=== PATIENT | male | born 1985 | race Caucasian/White ===

== ENCOUNTER 2018-09-18 09:42 | Inpatient (IN) ==
[2018-09-18] MEDS ORDERED: FAMOTIDINE 20MG/5ML IV PUSH IV STA (10:11)
[2018-09-18] MEDS ORDERED: PROCHLORPERAZINE 2 ML IV ONE (10:11)
[2018-09-18] MEDS ORDERED: SODIUM CHLORIDE 0.9% 1000ML 1,000 ML IV SCH (10:15)
--- NOTE | 2018-09-18 10:33 | XRay Report ---
XR chest 1V portable HISTORY: 32 years-old Male Chest Pain acute atypical chest pain COMPARISON: None available TECHNIQUE: Portable AP view of the chest FINDINGS: Cardiomediastinal and hilar silhouettes are within normal limits. No pneumothorax, pleural effusion, focal airspace consolidation or overt pulmonary edema. The bones of the chest appear grossly intact. IMPRESSION: No acute process. The above report was generated using voice recognition software. It may contain grammatical, syntax o r spelling errors. Electronically signed by: Dell Grant M.D. 09/18/2018 10:31 AM
[2018-09-18 10:54] LABS: Basophils # (auto) 0.01 K/uL (0-0.2); Basophils % (auto) 0.1 %; Eosinophils # (auto) 0.01 K/uL (0-0.5); Eosinophils % (auto) 0.1 %; Hematocrit (blood only) 25.2 % (42-52); Hemoglobin 8.5 g/dL (14.0-18.0); Immature Granulocytes # (auto) 0.02 K/uL (0.00-0.02); Immature Granulocytes % (auto) 0.2 %; Lymphocytes # (auto) 1.54 K/uL (1.2-3.4); Lymphocytes % (auto) 15.5 %; Mean Corpuscular Hgb Conc 33.7 g/dL (32-36); Mean Corpuscular Volume 91.3 fL (80-100); Mean Platelet Volume 9.8 fL (7.4-10.4); Monocytes # (auto) 0.72 K/uL (0.11-0.59); Monocytes % (auto) 7.2 %; Neutrophils # (auto) 7.64 K/uL (1.4-6.5); Neutrophils % (auto) 76.9 %; Platelet Count 331 K/uL (130-400); Prothrombin Time 10.5 Seconds (9.0-12.0); RDW Coefficient of Variation 13.6 % (11.5-14.5); RDW Standard Deviation 44.6 fL (36.4-46.3); Red Blood Count 2.76 M/uL (4.7-6.1); White Blood Count 9.94 K/uL (4.8-10.8)
[2018-09-18 11:04] LABS: Alanine Aminotransferase 18 U/L (12-78); Albumin Level 3.1 gm/dl (3.4-5.0); Aspartate Aminotransferase 9 U/L (15-37); BUN Creatinine Ratio 35.4 (10-20); Bilirubin Direct 0.1 mg/dl (0-0.2); Blood Urea Nitrogen 30 mg/dl (7-18); Carbon Dioxide 26 mmol/L (21-32); Chloride 110 mmol/L (98-107); Creatinine Clr Calc Pharmacy 134.1 ml/min; Est GFR (African American) 134.6; Est GFR (Non-African American) 116.1; Glucose 95 mg/dl (70-99); Magnesium 1.7 mg/dl (1.8-2.4); Potassium 3.9 mmol/L (3.5-5.1); Sodium 143 mmol/L (136-145)
[2018-09-18 11:07] LABS: Albumin Globulin Ratio 1.1 (0.9-2); Alkaline Phosphatase 58 U/L (45-117); Bilirubin,Total 0.6 mg/dl (0.2-1); Globulin 2.8 gm/dl (2.5-4.0); Phosphorus 3.1 mg/dl (2.5-4.9); Total Protein 5.9 gm/dl (6.4-8.2); Troponin I < 0.015 ng/ml (0-0.045)
[2018-09-18] MEDS ORDERED: IOVERSOL 100ml IV PRN (11:28)
[2018-09-18] MEDS ORDERED: MAGNESIUM SULFATE / D5W 1 GM/100 ML BAG IV STA (11:35)
[2018-09-18] MEDS ORDERED: PANTOprazole 40 MG in SYRINGE 0 ML IV ONE (11:45)
--- NOTE | 2018-09-18 11:53 | CT Scan Report ---
CT abd pelvis IV con only CLINICAL HISTORY: 32 years-old Male presenting with abd pain, hemoptysis/melena, coffee-ground emesis , coughing up blood for 3 weeks. TECHNIQUE: Multidetector CT of the abdomen and pelvis was performed after the administration of intra venous contrast. IV contrast: 93 mL of Optiray 320. One or more dose lowering techniques were used co nsistent with the principles of ALARA (as low as reasonably achievable), including automatic exposure control, mA or kV adjustment to individual patient size, and/or use of iterative reconstruction. COMPARISON: None. CT DOSE (mGy.cm): The estimated cumulative dose is 430.26 mGycm. FINDINGS: [employer] topogram: Unremarkable. Lung bases: Normal heart size. No pericardial or pleural effusion. No focal infiltrate or nodule at t he lung bases. Liver: Normal morphology. Hypodense lesion at the inferior right hepatic lobe with peripheral discont inuous nodular enhancement suggestive of a benign hemangioma.. Patent hepatic vasculature. Biliary: No intrahepatic or extrahepatic biliary ductal dilatation. Normal gallbladder. Pancreas: Fluid noted adjacent to the pancreatic head, which does not seem to emanate from the pancre as itself. Normal pancreatic parenchyma. Spleen: Normal. Adrenal glands: Normal. Kidneys and ureters: Normal. No hydronephrosis. Bladder: Normal. Pelvic organs: Prostate and seminal vesicles normal. Bowel: Normal appendix. No bowel obstruction. There is mild wall thickening of the pylorus and duoden al bulb with periduodenal fluid tracking along the duodenal bulb and descending portion of the duoden um. No extraluminal gas. Peritoneal cavity: No free fluid or intraperitoneal gas. Lymph nodes: Few prominent lymph nodes in the mesentery in the peripyloric region. Vasculature: Aorta and IVC patent and normal in caliber. Abdominal wall: Normal. Musculoskeletal: Normal. IMPRESSION: 1. Inflammatory change and surrounding fluid in the region of the gastric pylorus and duodenal bulb. This is concerning for either duodenitis or gastric/duodenal ulcer. Gastroenterology consultation re commended. Electronically signed by: Jony Figueroa M.D. 09/18/2018 11:52 AM
--- NOTE | 2018-09-18 12:20 | History & Physical Report ---
Date of Service September 18, 2018 Assessment & Plan (1) Upper gastrointestinal bleed: CTAP noted for possible ulcer, no free air Heme + in the ED Hx of similar without hx of transfusion or scopes Hb 8.5, will repeat later today I personally consented pt in the ED in case of need for transfusion Protonix BID push, d/w pharmacy given back order NPO with sips, IVF GI c/s pending (2) Hypomagnesemia: Replaced in the ED, monitor (3) Tobacco use disorder: Quit x3 weeks Declines need for nicotine patch (4) DVT prophylaxis: Avoid given above History of Present Illness Primary Care Provider: CARMENZA Otero 32 y/o M c/o coffee ground emesis. Pt states he has been throwing up blood on and off for the last 3 weeks. He has been able to eat at times, but other times unable. He has epigastric abd pain as well. He has been nauseated. No bright red blood in stools. No black stools. Pt states that he had something similar happen about 2 years ago, prior to being incarcerated. He was seen in the ED and dx with an ulcer. He was advised about diet changes, which he did, and his sx resolved. He did not f/u with anyone for this issue and was not scoped for this. Pt states he feels a bit better, but is still nauseated and with more mild pain. Per ED physician, pt was noted to be heme +. Pt denies fever, SOB, chest pain, c/d, LE pain or swelling. Allergies Allergy/AdvReac Type Severity Reaction Status Date / Time No Known Allergies Allergy Unverified 09/18/18 10:25 Home Medications Home Medications Medication Instructions Recorded Confirmed Type diclofenac sodium 75 mg PO BIDM 09/18/18 09/18/18 History Past Med/Surg History Medical History Ulcer No pertinent family history Surgical History No pertinent past surgical history Family History Grandfather Myocardial infarction Mother Myocardial infarction Other No pertinent family history Social History Preferred Language: German Communication Ability: Effective Visual Impairment: No Limitations Hearing Ability: Normal Current Living Situation: Other Current Living Situation Comment: CARMENZA Morales current occupational status: other current occupation: incarcerated Feels Safe at Home: Yes Smoking Status: Former smoker Tobacco Type: cigarettes Smoking End Date: 3 weeks Hx Alcohol Use: No Hx Substance Use: No Review of Systems Review of Systems: Pertinent positives and negatives reviewed in HPI--all ot hers negative Physical Exam Constitutional: WD/WN, vitals as above Eyes: normal visual pal by confrontation and + anicteric sclerae Neck: normal visual inspection and trachea midline Respiratory: normal respiratory effort, lungs clear to auscultation Cardiovascular: Rate/Rhythm: regular rate and regular rhythm Gastrointestinal (Abdomen): Inspection/Auscultation: abdomen not distended Percussion/Palpation: + abdomen tender (epigastric) and abdomen soft Musculoskeletal: Head/Neck/Chest: normocephalic and head atraumatic negative for edema, peripheral pulses intact Skin: no rashes, warm and dry Neurologic: awake; not confused Speech / Cognition: normal speech Psychiatric: A+Ox3, euthymic affect Results & Data Vital Signs (Past 12 Hours) Vital Signs Temp Pulse Pulse Resp BP BP Pulse Ox 09/18/18 11:34 94 H 16 104/71 99 09/18/18 09:53 37.2 C 105 H 15 112/76 100 Diagnostic Findings CXR: neg for acute CTAP: duodenitis vs gastric/duodenal ulcer, neg for free air ECG Indication: tachycardia PG Care Time/CCT Total # of Minutes Spent Total Time Spent with Patient: Total time spent is greater than 50% in coordination of care (as documented) at patient's floor/unit and/or counseling patient:
--- NOTE | 2018-09-18 13:07 | Emergency Department Note ---
Entered by Ariana Argueta acting as a scribe for History of Present Illness General Chief complaint: GI Bleed Stated complaint: gi bleed / sci darwin Time Seen by Provider: 09/18/18 09:42 Source: patient Mode of arrival: other Limitations: no limitations History of Present Illness Onset (ago): week(s) 3 Location: abdomen (GI bleed) Pain Consistency: + other (worsening) Maximum Pain Intensity: 7 Quality: + other (coffee gound emesis) Associated symptoms: + fever/chills (The patient complains of chills. The patien t denies fevers. ), + nausea/vomiting, + syncope and + other (The patient complains of dizziness. The patient denies melena, hematochezia, and congestion); no cough The patient is a 32 year old male with a history of an ulcer who presents to the ED via EMS with complaints of a worsening GI bleed that onset 3 weeks ago. The patient presents from [facility]. He states that his symptoms are similar to a past episode of an ulcer. He notes that his vomiting started as light-colored vomit that progressed into coffee ground emesis. The patient complains of chills, nausea, and dizziness. He states that he lost consciousness after an episode of vomiting last night. The patient denies melena, hematochezia, fever, cough, and congestion. He states that his last bowel movement was last night and was normal. He notes that he takes antacids regularly. The patient denies alcohol use or liver problems caused by alcohol use. Home Medications Home Medications Medication Instructions Recorded Confirmed Type diclofenac sodium 75 mg PO BIDM 09/18/18 09/18/18 History Allergies Allergy/AdvReac Type Severity Reaction Status Date / Time No Known Allergies Allergy Unverified 09/18/18 10:25 Past Med/Surg History Medical History Ulcer No pertinent family history Surgical History No pertinent past surgical history Family History Grandfather Myocardial infarction Mother Myocardial infarction Other No pertinent family history Social History Preferred Language: Serbian Communication Ability: Effective Visual Impairment: No Limitations Hearing Ability: Normal Beliefs That Will Affect Care: None Current Living Situation: Other Current Living Situation Comment: CARMENZA Morales current occupational status: other current occupation: incarcerated Other Information That Helps Us Care for You: No Feels Safe at Home: Yes Safety Concerns: Feels Safe At This Time Smoking Status: Former smoker Tobacco Type: cigarettes Smoking End Date: 3 weeks Hx Alcohol Use: No Hx Substance Use: No Review of Systems See HPI for pertinent positives & negatives. and A total of 10 systems reviewed and were otherwise negative Physical Exam Vital Signs Vital Signs - 24 hr 09/18/18 09:53 09/18/18 11:34 Temperature 37.2 C Temperature Source Oral Sepsis Recent Fever Within 48 Hours No Sepsis New/Unexplained Change in Mental Status No Sepsis Action Taken by Nursing No Action Required Pulse Rate 105 H Pulse Rate [Left] 94 H Respiratory Rate 15 16 Respiratory Effort / Characteristics Non-Labored Spontaneous Blood Pressure 112/76 Blood Pressure [Right Arm] 104/71 Blood Pressure Mean 88 Blood Pressure Mean [Right Arm] 82 Blood Pressure Position Lying Blood Pressure Position [Right Arm] Lying Pulse Oximetry 100 99 Oxygen Delivery Method Room Air Room Air GENERAL: Awake, alert, fatigued-appearing, in no distress HENT: Normocephalic, atraumatic. Oropharynx with dry mucous membranes and otherwise unremarkable. EYES: Normal conjunctiva. Sclera non-icteric. NECK: Supple. No nuchal rigidity. FROM. No JVD. RESPIRATORY: Clear to auscultation bilaterally. CARDIAC: Regular rate, normal rhythm. Extremities warm and well perfused. Pulses equal. ABDOMEN: Soft, non-distended. Mild epigastric discomfort without discreet tenderness. No rebound or guarding. No masses. RECTAL: Black stool/melena. No gross blood. Guaiac positive. MUSCULOSKELETAL: Chest examination reveals no tenderness. The back is symmetrical on inspection without obvious abnormality. There is no CVA tenderness to palpation. No joint edema. LOWER EXTREMITIES: Calves are equal size bilaterally and non-tender. No edema. No discoloration. NEURO: Normal sensorium. No sensory or motor deficits noted. SKIN: No rash or jaundice noted. Course 1006: Past medical records reviewed. The patient was evaluated in room C04. A complete history and physical examination was performed. 1134: [facility]. She will evaluate the patient for further management. Consultations Consultation #1: [id number]: I reviewed the patient's [facility]. She will evaluate the patient for further management. Time: 11:34 Administered Medications Potassium Chloride/Dextrose/Sod Cl (D5nss + 20meq Kcl) 20 meq in 1,000 mls @ 100 mls/hr IV .Q10H THOM Stop: 10/18/18 13:59 Last Admin: 09/18/18 14:29 Dose: 100 mls/hr Documented by: [id number] Ioversol (Optiray 320 100ml) 93 ml IV ONCE PRN PRN Reason: Interaction Checking Stop: 09/22/18 11:27 Last Admin: 09/18/18 11:29 Dose: 93 ml Documented by: [id number] Discontinued Medications Famotidine (Pepcid 20mg Iv Push) 20 mg IV ONE STA Stop: 09/18/18 10:12 Last Admin: 09/18/18 10:25 Dose: 20 mg Documented by: [id number] Prochlorperazine (Compazine) 2 mls @ 1 mls/min IV ONE ONE Stop: 09/18/18 10:12 Last Admin: 09/18/18 10:25 Dose: 1 mls/min Documented by: [id number] Sodium Chloride (Nss 1000ml) 1,000 mls @ 999 mls/hr IV .Q1H1M THOM Stop: 09/18/18 11:15 Last Infusion: 09/18/18 11:34 Dose: 0 mls/hr Documented by: [id number] Admin: 09/18/18 10:25 Dose: 999 mls/hr Documented by: [id number] Pantoprazole Sodium 40 mg/ (Syringe) 10 mls @ 5 mls/min IV ONE ONE Stop: 09/18/18 11:46 Last Admin: 09/18/18 12:06 Dose: 5 mls/min Documented by: [id number] Magnesium Sulfate/Dextrose (Magnesium Sulfate / D5w) 1 gm in 100 mls @ 100 mls/hr IV Q1H STA Stop: 09/18/18 12:34 Last Infusion: 09/18/18 13:03 Dose: 0 mls/hr Documented by: [id number] Infusion: 09/18/18 13:01 Dose: 100 mls/hr Documented by: [id number] Admin: 09/18/18 12:07 Dose: 100 mls/hr Documented by: [id number] Medical Decision Making Differential Diagnosis Differential diagnoses: Diverticulosis, AVM, coagulopathy, colitis, inflammatory bowel disease, malignancy, Radha-Chamberlain tear, esophagitis, peptic ulcer disease, variceal bleed, gastritis, epistaxis, fissure, hemorrhoids, as well as others were entertained. Medical Records Attestation: I reviewed the patient's medical records. Home Medications Current Medication List: was personally reviewed by me Laboratory Data Attestation: I reviewed the patient's lab results. Result diagrams: 09/18/18 10:26 09/18/18 10:26 Lab Results 09/18/18 09/18/18 09/18/18 Range/Units 10:26 10:26 10:26 WBC 9.94 (4.8-10.8) K/uL RBC 2.76 L (4.7-6.1) M/uL Hgb 8.5 L (14.0-18.0) g/dL Hct 25.2 L (42-52) % MCV 91.3 (80-100) fL MCH 30.8 (25-34) pg MCHC 33.7 (32-36) g/dL RDW Std Deviation 44.6 (36.4-46.3) fL RDW Coeff of Sabas 13.6 (11.5-14.5) % Plt Count 331 (130-400) K/uL MPV 9.8 (7.4-10.4) fL Immature Gran % (Auto) 0.2 % Neut % (Auto) 76.9 % Lymph % (Auto) 15.5 % [place] % (Auto) 7.2 % Eos % (Auto) 0.1 % Baso % (Auto) 0.1 % Immature Gran # (Auto) 0.02 (0.00-0.02) K/uL Neut # (Auto) 7.64 H (1.4-6.5) K/uL Lymph # (Auto) 1.54 (1.2-3.4) K/uL [place] # (Auto) 0.72 H (0.11-0.59) K/uL Eos # (Auto) 0.01 (0-0.5) K/uL Baso # (Auto) 0.01 (0-0.2) K/uL PT 10.5 (9.0-12.0) Seconds INR 1.0 (0.9-1.1) Sodium 143 (136-145) mmol/L Potassium 3.9 (3.5-5.1) mmol/L Chloride 110 H (98-107) mmol/L Carbon Dioxide 26 (21-32) mmol/L Anion Gap 7.0 (3-11) BUN 30 H (7-18) mg/dl Creatinine 0.85 (0.6-1.4) mg/dl Est Cr Clr Drug Dosing 134.1 ml/min Est GFR ( Amer) 134.6 Est GFR (Non-Af Amer) 116.1 BUN/Creatinine Ratio 35.4 H (10-20) Glucose 95 (70-99) mg/dl Calcium 8.0 L (8.5-10.1) mg/dl Phosphorus 3.1 (2.5-4.9) mg/dl Magnesium 1.7 L (1.8-2.4) mg/dl Total Bilirubin 0.6 (0.2-1) mg/dl Direct Bilirubin 0.1 (0-0.2) mg/dl AST 9 L (15-37) U/L ALT 18 (12-78) U/L Alkaline Phosphatase 58 (45-117) U/L Troponin I < 0.015 (0-0.045) ng/ml Total Protein 5.9 L (6.4-8.2) gm/dl Albumin 3.1 L (3.4-5.0) gm/dl Globulin 2.8 (2.5-4.0) gm/dl Albumin/Globulin Ratio 1.1 (0.9-2) Lipase 59 L (73-393) U/L Blood Type Antibody Screen 09/18/18 Range/Units 10:26 WBC (4.8-10.8) K/uL RBC (4.7-6.1) M/uL Hgb (14.0-18.0) g/dL Hct (42-52) % MCV (80-100) fL MCH (25-34) pg MCHC (32-36) g/dL RDW Std Deviation (36.4-46.3) fL RDW Coeff of Sabas (11.5-14.5) % Plt Count (130-400) K/uL MPV (7.4-10.4) fL Immature Gran % (Auto) % Neut % (Auto) % Lymph % (Auto) % [place] % (Auto) % Eos % (Auto) % Baso % (Auto) % Immature Gran # (Auto) (0.00-0.02) K/uL Neut # (Auto) (1.4-6.5) K/uL Lymph # (Auto) (1.2-3.4) K/uL [place] # (Auto) (0.11-0.59) K/uL Eos # (Auto) (0-0.5) K/uL Baso # (Auto) (0-0.2) K/uL PT (9.0-12.0) Seconds INR (0.9-1.1) Sodium (136-145) mmol/L Potassium (3.5-5.1) mmol/L Chloride (98-107) mmol/L Carbon Dioxide (21-32) mmol/L Anion Gap (3-11) BUN (7-18) mg/dl Creatinine (0.6-1.4) mg/dl Est Cr Clr Drug Dosing ml/min Est GFR ( Amer) Est GFR (Non-Af Amer) BUN/Creatinine Ratio (10-20) Glucose (70-99) mg/dl Calcium (8.5-10.1) mg/dl Phosphorus (2.5-4.9) mg/dl Magnesium (1.8-2.4) mg/dl Total Bilirubin (0.2-1) mg/dl Direct Bilirubin (0-0.2) mg/dl AST (15-37) U/L ALT (12-78) U/L Alkaline Phosphatase (45-117) U/L Troponin I (0-0.045) ng/ml Total Protein (6.4-8.2) gm/dl Albumin (3.4-5.0) gm/dl Globulin (2.5-4.0) gm/dl Albumin/Globulin Ratio (0.9-2) Lipase (73-393) U/L Blood Type O Positive Antibody Screen NEGATIVE Imaging Data Radiologist's Impression: Radiology results as stated below per my review and the radiologist's interpretation: CT abd pelvis IV con only CLINICAL HISTORY: 32 years-old Male presenting with abd pain, hemoptysis/melena, coffee-ground emesis, coughing up blood for 3 weeks. TECHNIQUE: Multidetector CT of the abdomen and pelvis was performed after the administration of intravenous contrast. IV contrast: 93 mL of Optiray 320. One or more dose lowering techniques were used consistent with the principles of ALARA (as low as reasonably achievable), including automatic exposure control, mA or kV adjustment to individual patient size, and/or use of iterative reconstruction. COMPARISON: None. CT DOSE (mGy.cm): The estimated cumulative dose is 430.26 mGycm. FINDINGS: Compliance Coordinator topogram: Unremarkable. Lung bases: Normal heart size. No pericardial or pleural effusion. No focal infiltrate or nodule at the lung bases. Liver: Normal morphology. Hypodense lesion at the inferior right hepatic lobe with peripheral discontinuous nodular enhancement suggestive of a benign hemangioma.. Patent hepatic vasculature. Biliary: No intrahepatic or extrahepatic biliary ductal dilatation. Normal gallbladder. Pancreas: Fluid noted adjacent to the pancreatic head, which does not seem to emanate from the pancreas itself. Normal pancreatic parenchyma. Spleen: Normal. Adrenal glands: Normal. Kidneys and ureters: Normal. No hydronephrosis. Bladder: Normal. Pelvic organs: Prostate and seminal vesicles normal. Bowel: Normal appendix. No bowel obstruction. There is mild wall thickening of the pylorus and duodenal bulb with periduodenal fluid tracking along the duodenal bulb and descending portion of the duodenum. No extraluminal gas. Peritoneal cavity: No free fluid or intraperitoneal gas. Lymph nodes: Few prominent lymph nodes in the mesentery in the peripyloric region. Vasculature: Aorta and IVC patent and normal in caliber. Abdominal wall: Normal. Musculoskeletal: Normal. IMPRESSION: 1. Inflammatory change and surrounding fluid in the region of the gastric pylorus and duodenal bulb. This is concerning for either duodenitis or gastric/duodenal ulcer. Gastroenterology consultation recommended. Electronically signed by: Jony Figueroa M.D. 09/18/2018 11:52 AM Dictated: 09/18/18 1145 Transcribed: 09/18/18 1145 XR chest 1V portable HISTORY: 32 years-old Male Chest Pain acute atypical chest pain COMPARISON: None available TECHNIQUE: Portable AP view of the chest FINDINGS: Cardiomediastinal and hilar silhouettes are within normal limits. No pneum othorax, pleural effusion, focal airspace consolidation or overt pulmonary edema. The bones of the chest appear grossly intact. IMPRESSION: No acute process. The above report was generated using voice recognition software. It may contain grammatical, syntax or spelling errors. Electronically signed by: Dell Grant M.D. 09/18/2018 10:31 AM Dictated: 09/18/18 1030 Transcribed: 09/18/18 1030 ECG Data Attestation: I personally reviewed and interpreted this ECG as follows: Indication: other (GI bleed) Rate (beats per minute): 106 Rhythm: sinus tachycardia Findings: + other (normal axis); no acute ischemic change Blood Pressure Blood Pressure Findings: Normal blood pressure MDM Narrative The patient is a pleasant 32-year-old gentleman currently incarcerated who presents emergency department with coffee-ground emesis and lightheadedness with generalized weakness per hpi. He reports a prior history of a peptic ulcer but is unsure if she if he had an endoscopy. On arrival patient is fatigued appearing but no acute distress, afebrile stable vital signs. He has mild epigastric tenderness without peritoneal signs. Rectal exam demonstrates black/melanotic stool that is guaiac positive without any gross blood. WBC within normal limits. H/H8 0.5/25.2 without prior values for comparison. Platelets within normal limits. Chemistry without acidosis. BUN elevated at 30 with creatinine within normal limits. Magnesium 1.7 with repletion provided. Troponin negative. Patient was treated with IV fluids, Pepcid and Protonix. Given the patient is hemodynamically stable will defer transfusion at this time. EKG without overt acute ischemia. Chest x-ray negative for free air. CT abdomen pelvis with evidence of PUD. Reasonable to admit the patient for further management of likely upper GI bleed. Case was discussed with Dr. Brooke Yusuf, [facility] hospitalist, who will evaluate the patient for admission. Impression & Plan Upper gastrointestinal bleed, Anemia, Hypomagnesemia Discharge Plan Visit Data *Final* Discharge Date/Time: 09/18/18 13:13 Chief Complaint: GI Bleed Stated Complaint: gi bleed / sci darwin ED Provider: Donovan Caruso Discharge Problem: Upper gastrointestinal bleed, Anemia, Hypomagnesemia Patient Disposition: Admitted As Inpatient Discharge Instructions Interventions: ED Discharge Assessment Last Done: 09/18/18 13:13 Discharge Problem: Anemia Qualifiers: Anemia type: unspecified type Qualified Code(s): D64.9 - Anemia, unspecified The adiibe's documentation has been prepared under my direction and personally reviewed by me in its entirety. I confirm that the note above accurately reflects all work, treatment, procedures, and medical decision making performed by me.
[2018-09-18] MEDS ORDERED: ONDANSETRON INJ 2 MG/ML 2 ML VIAL IV PRN (13:44)
[2018-09-18] MEDS ORDERED: ACETAMINOPHEN 325 MG TAB PO PRN (13:44)
[2018-09-18] MEDS ORDERED: MAGNESIUM HYDROXIDE SUSP 30 ML UDC PO PRN (13:44)
[2018-09-18] MEDS: D5NSS + 20MEQ KCL 20 MEQ/1,000 ML BAG IV SCH (14:29)
[2018-09-18 19:56] LABS: Hematocrit (blood only) 21.1 % (42-52)
[2018-09-18] MEDS: PANTOprazole 40 MG in SYRINGE 0 ML IV SCH (20:28)
[2018-09-19] MEDS: D5NSS + 20MEQ KCL 20 MEQ/1,000 ML BAG IV SCH ×2 (00:02→19:05)
[2018-09-19 07:04] LABS: Hematocrit (blood only) 20.3 % (42-52); Hemoglobin 6.7 g/dL (14.0-18.0); Mean Corpuscular Volume 92.7 fL (80-100); Mean Platelet Volume 9.2 fL (7.4-10.4); Platelet Count 250 K/uL (130-400); RDW Coefficient of Variation 13.8 % (11.5-14.5); RDW Standard Deviation 46.1 fL (36.4-46.3); Red Blood Count 2.19 M/uL (4.7-6.1); White Blood Count 7.01 K/uL (4.8-10.8)
[2018-09-19 07:19] LABS: BUN Creatinine Ratio 17.9 (10-20); Calcium 7.5 mg/dl (8.5-10.1); Creatinine Clr Calc Pharmacy 160.6 ml/min; Est GFR (African American) 144.9; Magnesium 2.1 mg/dl (1.8-2.4); Phosphorus 2.2 mg/dl (2.5-4.9); Potassium 4.2 mmol/L (3.5-5.1)
[2018-09-19 07:28] LABS: Basophilic Stippling Occasional; Basophils # (auto) 0.01 K/uL (0-0.2); Basophils % (auto) 0.1 %; Eosinophils # (auto) 0.09 K/uL (0-0.5); Eosinophils % (auto) 1.3 %; Immature Granulocytes # (auto) 0.01 K/uL (0.00-0.02); Immature Granulocytes % (auto) 0.1 %; Lymphocytes # (auto) 1.34 K/uL (1.2-3.4); Lymphocytes % (auto) 19.1 %; Monocytes # (auto) 0.53 K/uL (0.11-0.59); Monocytes % (auto) 7.6 %; Neutrophils # (auto) 5.03 K/uL (1.4-6.5); Neutrophils % (auto) 71.8 %
[2018-09-19] MEDS ORDERED: METOCLOPRAMIDE HCL INJ 5 MG/ML 2 ML VIAL IV STA ×2 (09:12→12:35)
--- NOTE | 2018-09-19 09:16 | Gastrointestinal Consultation ---
Date of Consultation September 19, 2018 Assessment & Plan (1) Anemia: Patient is a 32 yo male who presents to the hospital with hematemesis & anemia. H/H 6.7/20.3 -Management of transfusions per primary team -Continue to monitor H/H -See UGI bleed Present on Admission?: Yes (2) Upper gastrointestinal bleed: -NPO -IV Protonix 40 mg BID -IV Reglan 10 mg dose once 1 hour prior to EGD -EGD today -Avoid NSAIDs Present on Admission?: Yes Supervising Physician Co-Signing Physician Notes Agree with ED Daly as above Abd: Soft, NT, ND, +BS Continue current therapy Proceed with EGD now History of Present Illness Reason for Consultation: GI bleed Attending Physician: Bao Guzman MD History of Present Illness Patient is a 32 yo incarcerated male with a PMH of tobacco use and gastric ulcers who presents for an evaluation of coffee ground emesis. He reports that for the past 3 weeks he has had left sided abdominal pain and has been vomiting a dark substance. He reports that he has a history of a gastric ulcer in the past and has been using NSAID therapy 3 times weekly. He reports some decrease in appetite given his vomiting. He reports nausea. No complaints of heartburn or reflux. He denies changes in his stool. He reports a family history of various GI issues but does not mention a history of GI malignancy. He reports that the last instance of coffee-ground emesis or vomiting in general was the night of 09/17/2018. He was admitted to [facility] due to significant anemia. His H/H is presently 6.7/20.3. He is on BID PPI therapy per hospitalist orders. A CT scan was performed and indicated an abnormality suspicious for duodenitis or duodenal ulcer. Allergies Allergy/AdvReac Type Severity Reaction Status Date / Time No Known Allergies Allergy Unverified 09/18/18 10:25 Home Medications Home Medications Medication Instructions Recorded Confirmed Type diclofenac sodium 75 mg PO BIDM 09/18/18 09/18/18 History Patient History Medical History Ulcer No pertinent family history Surgical History No pertinent past surgical history Family History Grandfather Myocardial infarction Mother Myocardial infarction Other No pertinent family history Social History Preferred Language: Hungarian Communication Ability: Effective Visual Impairment: No Limitations Hearing Ability: Normal Beliefs That Will Affect Care: None Current Living Situation: Other Current Living Situation Comment: [facility] current occupational status: other current occupation: incarcerated Other Information That Helps Us Care for You: No Feels Safe at Home: Yes Safety Concerns: Feels Safe At This Time Smoking Status: Former smoker Tobacco Type: cigarettes Smoking End Date: 3 weeks Hx Alcohol Use: No Hx Substance Use: No Review of Systems Constitutional: no fever and no sweats Eyes: no acute complaints Respiratory: no cough and no dyspnea Cardiovascular: no chest pain Gastrointestinal: + abdominal pain, + nausea and + hematemesis (resolved at present); no melena Musculoskeletal: no back pain Integumentary: no rash Neurologic: no falls Psychiatric: no acute complaints Endocrine: no fatigue Hematologic / Lymphatic: no easy bleeding Physical Exam Constitutional: WD/WN, vitals as above Eyes: PERRL, conjunctivae normal, anicteric sclerae ENMT: external ear and nose normal, oropharynx normal Neck: normal visual inspection Respiratory: normal respiratory effort, lungs clear to auscultation Cardiovascular: RRR, no murmur, no edema Gastrointestinal (Abdomen): normal bowel sounds, soft, nontender, no hepatosplenomegaly Musculoskeletal: no cyanosis or clubbing, extremities motor strength 5/5 Skin: no rashes, warm and dry Neurologic: moves all extremities Psychiatric: A+Ox3, euthymic affect Results & Data Vital Signs (Past 12 Hours) Vital Signs Temp Pulse Pulse Resp BP BP Pulse Ox 09/19/18 08:05 76 09/19/18 07:37 36.5 C 81 18 87/58 L 97 09/19/18 04:17 36.5 C 76 18 96/61 L 100 09/19/18 00:03 36.9 C 66 16 89/56 L 100 09/19/18 00:00 64 (1) Anemia Anemia type: unspecified type Qualified Code(s): D64.9 - Anemia, unspecified
[2018-09-19] MEDS ORDERED: SODIUM CHLORIDE 0.9% 250 ML IV PRN (09:33)
[2018-09-19] MEDS: PANTOprazole 40 MG in SYRINGE 0 ML IV SCH ×2 (10:01→20:26)
--- NOTE | 2018-09-19 11:44 | Family Medicine Progress Note ---
Date of Service September 19, 2018 Assessment & Plan (1) Upper gastrointestinal bleed: Remi Villatoro is a 32 y/o incarcerated male with past history of report gastric ulcer who was admitted for probable upper GI bleed and acute blood loss anemia. - timing of symptoms coincide with starting new med Diclofenac for back pain, which was most likely etiology. - GI consulted and plan for EGD today. - Currently on PPI BID IV - NPO for procedure on IV fluids @100mls/hr - Zofran for nausea PRN - clinically appears to have stopped with no current signs of bleeding (2) Acute blood loss anemia: Hgb on presentation was 8.5, then 09/18 7pm was 7.0. This morning's value was 6.7. - probable from acute blood loss from upper GI bleed, no other signs of bleeding - Will transfuse 2 units of pRBCs this morning as velocity of Hgb drop concerning for possible active bleed and will opt to get ahead in case still bleeding to prevent hemodynamic collapse. Supervising Physician Co-Signing Physician Notes Attending attestation Pt seen and examined in concert with Dr. Bermudez. In agreement with the documented findings as noted in the resident documentation with any exceptions or additions as noted here. Laying in bed without complaint of SOB, CP, palpitations, lightheadedness. No recent episodes of melena/hematemesis. UGIB - pending endoscopy. Transfuse 2 UPRBC this AM 2/2 anemia with downward trend with CBC to follow. Else see resident documentation as noted. Subjective Remi notes last episode of emesis was about 2 days ago. Currently he has no acute complaints of shortness of breath, chest pain, nausea, vomiting, diarrhea, black/bloody stools, abdominal pain, fever or chills. Only notes being hungry a nd looking forward to being able to eat about EGD. He notes starting oral diclofenic about one month ago and having intermittent bouts of nausea, vomiting with dark emesis, light headedness/dizziness for the past 3 weeks. He notes previous history of upper GI bleed gastric ulcer about 4 years ago that was treated clinically without having prior EGD. Physical Exam Constitutional: WD/WN, vitals as above cooperative right lower extremity handcuffed to bed Eyes: PERRL, conjunctivae normal, anicteric sclerae ENMT: external ear and nose normal, oropharynx normal Neck: normal visual inspection and trachea midline Respiratory: normal respiratory effort, lungs clear to auscultation Cardiovascular: RRR, no murmur, no edema Gastrointestinal (Abdomen): normal bowel sounds, soft, nontender, no hepatosplenomegaly Musculoskeletal: no cyanosis or clubbing, extremities motor strength 5/5 Skin: no rashes, warm and dry Neurologic: moves all extremities and awake Psychiatric: A+Ox3, euthymic affect Results & Data Vital Signs (Past 12 Hours) Vital Signs Temp Pulse Pulse Resp BP BP BP 09/19/18 11:11 36.7 C 74 18 110/73 09/19/18 10:50 36.9 C 74 18 102/67 09/19/18 10:35 36.9 C 74 16 110/73 09/19/18 10:19 36.8 C 75 18 98/63 L 09/19/18 08:05 76 09/19/18 07:37 36.5 C 81 18 87/58 L 09/19/18 04:17 36.5 C 76 18 96/61 L 09/19/18 00:03 36.9 C 66 16 89/56 L 09/19/18 00:00 64 Pulse Ox 09/19/18 11:11 100 09/19/18 10:50 100 09/19/18 10:35 100 09/19/18 10:19 100 09/19/18 08:05 09/19/18 07:37 97 09/19/18 04:17 100 09/19/18 00:03 100 09/19/18 00:00 Laboratory Results Laboratory Results - last 24 hr 09/18/18 09/18/18 09/18/18 10:26 19:13 19:13 WBC RBC Hgb 7.0 L Hct 21.1 L MCV MCH MCHC RDW Std Deviation RDW Coeff of [place] Plt Count MPV Immature Gran % (Auto) Neut % (Auto) Lymph % (Auto) [place] % (Auto) Eos % (Auto) Baso % (Auto) Immature Gran # (Auto) Neut # (Auto) Lymph # (Auto) [place] # (Auto) Eos # (Auto) Baso # (Auto) Basophilic Stippling Sodium Potassium Chloride Carbon Dioxide Anion Gap BUN Creatinine Est Cr Clr Drug Dosing Est GFR ( Amer) Est GFR (Non-Af Amer) BUN/Creatinine Ratio Glucose Calcium Phosphorus Magnesium Nasal Screen MRSA (PCR) Blood Type O Positive Blood Type Recheck O Positive Antibody Screen NEGATIVE Crossmatch See Detail 09/18/18 09/19/18 09/19/18 Unknown 06:20 06:20 WBC 7.01 RBC 2.19 L Hgb 6.7 L* Hct 20.3 L* MCV 92.7 MCH 30.6 MCHC 33.0 RDW Std Deviation 46.1 RDW Coeff of [place] 13.8 Plt Count 250 MPV 9.2 Immature Gran % (Auto) 0.1 Neut % (Auto) 71.8 Lymph % (Auto) 19.1 [place] % (Auto) 7.6 Eos % (Auto) 1.3 Baso % (Auto) 0.1 Immature Gran # (Auto) 0.01 Neut # (Auto) 5.03 Lymph # (Auto) 1.34 [place] # (Auto) 0.53 Eos # (Auto) 0.09 Baso # (Auto) 0.01 Basophilic Stippling Occasional Sodium 142 Potassium 4.2 Chloride 114 H Carbon Dioxide 26 Anion Gap 2.0 L BUN 13 D Creatinine 0.71 Est Cr Clr Drug Dosing 160.6 Est GFR ( Amer) 144.9 Est GFR (Non-Af Amer) 125.0 BUN/Creatinine Ratio 17.9 Glucose 111 H Calcium 7.5 L Phosphorus 2.2 L Magnesium 2.1 Nasal Screen MRSA (PCR) Negative Blood Type Blood Type Recheck Antibody Screen Crossmatch Medications Administered Potassium Chloride/Dextrose/Sod Cl (D5nss + 20meq Kcl) 20 meq in 1,000 mls @ 100 mls/hr IV .Q10H THOM Stop: 10/18/18 13:59 Last Infusion: 09/19/18 10:02 Dose: 0 mls/hr Documented by: [id number] Admin: 09/19/18 00:02 Dose: 100 mls/hr Documented by: [id number] Infusion: 09/19/18 00:02 Dose: 100 mls/hr Documented by: [id number] Admin: 09/18/18 14:29 Dose: 100 mls/hr Documented by: [id number] Pantoprazole Sodium 40 mg/ (Syringe) 10 mls @ 5 mls/min IV BID@0900,2100 THOM Stop: 10/18/18 20:59 Last Admin: 09/19/18 10:01 Dose: 5 mls/min Documented by: [id number] Admin: 09/18/18 20:28 Dose: 5 mls/min Documented by: [id number] Ioversol (Optiray 320 100ml) 93 ml IV ONCE PRN PRN Reason: Interaction Checking Stop: 09/22/18 11:27 Last Admin: 09/18/18 11:29 Dose: 93 ml Documented by: [id number] PG Care Time/CCT Total # of Minutes Spent Total Time Spent with Patient: Total time spent is greater than 50% in coordination of care (as documented) at patient's floor/unit and/or counseling patient: Resident Activity Tracking Resident Involvement: Resident Care Provided Care Provided: Adult Hospital Medicine
--- NOTE | 2018-09-19 13:18 | Anesthesiology Consultation ---
Date of Service September 19, 2018 Assessment & Plan (1) Encounter for pre-operative examination: Chart Review Chart Review: Acceptable Risk for Surgery and Patient NOT seen in Pre Admission Testing Consults Requested none History Surgery Operation Date: 09/19/18 10:45 Proposed Procedures p Esophagogastroduodenoscopy Dr Juma Read Case, DO Height/Weight Height: 5 ft 11 in Weight: 75.6 kg Allergies Allergy/AdvReac Type Severity Reaction Status Date / Time No Known Allergies Allergy Unverified 09/18/18 10:25 Medications Home Medications Medication Instructions Recorded Confirmed Last Taken diclofenac sodium 75 mg PO BIDM 09/18/18 09/18/18 09/18/18 Active Medications Generic Name Dose Route Start Last Admin Trade Name Freq PRN Reason Stop Dose Admin Potassium Chloride/Dextrose/Sod Cl 20 meq in 1,000 mls @ 100 mls/hr 09/18/18 14:00 09/19/18 10:02 D5nss + 20meq Kcl IV 10/18/18 13:59 Infused .Q10H THOM Infusion Pantoprazole Sodium 40 mg/ 10 mls @ 5 mls/min 09/18/18 21:00 09/19/18 10:01 Syringe IV 10/18/18 20:59 5 mls/min BID@0900,2100 THOM Administration Ioversol 93 ml 09/18/18 11:28 09/18/18 11:29 Optiray 320 100ml IV 09/22/18 11:27 93 ml ONCE PRN Administration Interaction Checking NPO Date Last Intake of Fluids: 09/18/18 Time Last Intake of Fluids: 07:00 Date Last Intake of Solids: 09/17/18 Time Last Intake of Solids: 18:00 Past Medical History Medical History Ulcer No pertinent family history Past Family History Family History Grandfather Myocardial infarction Mother Myocardial infarction Other No pertinent family history Past Surgical History Surgical History No pertinent past surgical history Social History Smoking Status: Former smoker tobacco type: cigarettes Smoking End Date: 3 weeks Hx Alcohol Use: No Hx Substance Use: No Physical Exam Vital Signs Last Vital Signs Temp 36.8 C 09/19/18 12:54 Pulse 76 09/19/18 12:54 Resp 20 09/19/18 12:54 BP 107/60 09/19/18 12:54 Pulse Ox 100 09/19/18 12:54 Testing Laboratory Results 09/19/18 06:20 09/19/18 06:20 PT 10.5 Seconds (9.0-12.0) 09/18/18 10:26 INR 1.0 (0.9-1.1) 09/18/18 10:26 Blood Type O Positive 09/18/18 10:26 Antibody Screen NEGATIVE 09/18/18 10:26
[2018-09-19] MEDS ORDERED: PROPOFOL IV EMULSION 10 MG/ML 20 ML VIAL IV ONE (13:19)
[2018-09-19] MEDS ORDERED: ATROPINE SULFATE 0.1 MG/ML 10ML SYR IV PRN (13:19)
[2018-09-19] MEDS ORDERED: ePHEDrine sulfate 50 MG/ML AMP IV PRN (13:19)
[2018-09-19] MEDS ORDERED: LIDOCAINE HCL 2% 2 ML VIAL/AMP(20MG/ML) INFIL ONE (13:19)
[2018-09-19] MEDS ORDERED: MIDAZOLAM HCL 1 MG/ML 2ML VIAL ONE (13:20)
--- NOTE | 2018-09-19 13:37 | GI REPORT ---
Patient Name: Remi Arrington Procedure Date: 09/19/2018 1:04 PM Date of : 1985 Admit Type: Inpatient Age: 32 Gender: Male Attending MD: Abdirashid Dennison DO Procedure: Upper GI endoscopy Providers: Abdirashid Dennison DO Referring MD: Marcel Guzman Indications: Acute post hemorrhagic anemia, Coffee-ground emesis Medicines: Monitored Anesthesia Care Complications: No immediate complications. Estimated Blood Loss: Estimated blood loss: none. Procedure: Pre-Anesthesia Assessment: - Prior to the procedure, a History and Physical was performed, and patient medications and allergies were reviewed. The patient's tolerance of previous anesthesia was also reviewed. The risks and benefits of the procedure and the sedation options and risks were discussed with the patient. All questions were answered, and informed consent was obtained. Prior Anticoagulants: The patient has taken no previous anticoagulant or antiplatelet agents. ASA Grade Assessment: II - A patient with mild systemic disease. After reviewing the risks and benefits, the patient was deemed in satisfactory condition to undergo the procedure. After obtaining informed consent, the endoscope was passed under direct vision. Throughout the procedure, the patient's blood pressure, pulse, and oxygen saturations were monitored continuously. The Endoscope was introduced through the mouth, and advanced to the second part of duodenum. The upper GI endoscopy was accomplished without difficulty. The patient tolerated the procedure well. Findings: The esophagus was normal. A small hiatal hernia was present. Localized moderate inflammation characterized by erosions was found in the gastric antrum. Biopsies were taken with a cold forceps for histology. One non-bleeding cratered duodenal ulcer with no stigmata of bleeding was found in the duodenal bulb. The lesion was 15 mm in largest dimension. Impression: - Normal esophagus. - Small hiatal hernia. - Gastritis. Biopsied. - One non-bleeding duodenal ulcer with no stigmata of bleeding. Recommendation: - Return patient to [facility] for ongoing care. - Clear liquid diet. - Continue present medications. - Await pathology results. Abdirashid Dennison DO 09/19/2018 1:37:24 PM This report has been signed electronically. Note Initiated On: 09/19/2018 1:04 PM Number of Addenda: 0 I attest to the content of the Intraoperative Record and orders documented therein, exceptions below {[id number]}
--- NOTE | 2018-09-19 14:04 | Anesthesiology Progress Note ---
Date of Service September 19, 2018 Anesthesia Post Procedure Vital Signs Vital Signs: Temp Pulse Pulse Pulse Resp BP BP 09/19/18 13:50 99 H 20 09/19/18 13:35 118 H 20 09/19/18 12:54 36.8 C 76 76 20 107/60 09/19/18 12:20 36.9 C 80 18 100/64 09/19/18 11:20 36.7 C 70 16 112/73 09/19/18 11:11 36.7 C 74 18 110/73 09/19/18 10:50 36.9 C 74 18 102/67 09/19/18 10:35 36.9 C 74 16 110/73 09/19/18 10:19 36.8 C 75 18 98/63 L 09/19/18 08:05 76 09/19/18 07:37 36.5 C 81 18 87/58 L 09/19/18 04:17 36.5 C 76 18 09/19/18 00:03 36.9 C 66 16 09/19/18 00:00 64 09/18/18 20:00 36.8 C 82 18 09/18/18 16:00 36.8 C 73 82 18 BP Pulse Ox 09/19/18 13:50 99/54 L 98 09/19/18 13:35 105/48 L 100 09/19/18 12:54 100 09/19/18 12:20 100 09/19/18 11:20 100 09/19/18 11:11 100 09/19/18 10:50 100 09/19/18 10:35 100 09/19/18 10:19 100 09/19/18 08:05 09/19/18 07:37 97 09/19/18 04:17 96/61 L 100 09/19/18 00:03 89/56 L 100 09/19/18 00:00 09/18/18 20:00 91/54 L 100 09/18/18 16:00 91/57 L 99 Pain Intensity Abdomen: Pain Intensity: 4 Transfer of Care Handoff Completed per policy Notes Mental Status: alert / awake / arousable Patient Amnestic to Procedure: Yes Nausea / Vomiting: adequately controlled Pain: adequately controlled Airway Patency, RR, SpO2: stable & adequate BP & HR: stable & adequate Hydration State: stable & adequate Anesthetic Complications: no major complications apparent and Pt Satisfied with anesthetic care
[2018-09-19 14:58] LABS: Hematocrit (blood only) 25.2 % (42-52); Hemoglobin 8.5 g/dL (14.0-18.0); Mean Corpuscular Hgb Conc 33.7 g/dL (32-36); Mean Corpuscular Volume 89.7 fL (80-100); Mean Platelet Volume 9.6 fL (7.4-10.4); Platelet Count 278 K/uL (130-400); RDW Coefficient of Variation 14.3 % (11.5-14.5); RDW Standard Deviation 47.3 fL (36.4-46.3); Red Blood Count 2.81 M/uL (4.7-6.1); White Blood Count 7.77 K/uL (4.8-10.8)
[2018-09-20 05:47] LABS: Hematocrit (blood only) 26.6 % (42-52); Hemoglobin 9.1 g/dL (14.0-18.0); Mean Corpuscular Hgb Conc 34.2 g/dL (32-36); Mean Corpuscular Volume 88.4 fL (80-100); Mean Platelet Volume 9.6 fL (7.4-10.4); Platelet Count 264 K/uL (130-400); RDW Standard Deviation 48.3 fL (36.4-46.3); Red Blood Count 3.01 M/uL (4.7-6.1); White Blood Count 7.55 K/uL (4.8-10.8)
[2018-09-20 06:20] LABS: BUN Creatinine Ratio 15.1 (10-20); Calcium 8.1 mg/dl (8.5-10.1); Est GFR (African American) 136.6; Est GFR (Non-African American) 117.8; Potassium 3.8 mmol/L (3.5-5.1)
--- NOTE | 2018-09-20 08:09 | Anesthesiology Progress Note ---
Date of Service September 20, 2018 Anesthesia Post Procedure Vital Signs Vital Signs: Temp Pulse Pulse Pulse Resp BP BP 09/20/18 07:00 36.8 C 78 20 09/20/18 03:52 36.6 C 85 18 09/20/18 00:35 73 09/19/18 22:54 36.7 C 69 18 09/19/18 19:00 36.9 C 80 19 09/19/18 16:29 36.8 C 77 18 116/68 09/19/18 16:00 36.6 C 85 18 111/75 09/19/18 15:31 36.6 C 71 18 115/72 09/19/18 15:15 36.6 C 69 18 111/77 09/19/18 15:10 36.4 C L 71 18 116/78 09/19/18 14:42 36.5 C 89 18 104/68 09/19/18 14:05 90 20 09/19/18 13:50 99 H 20 09/19/18 13:35 118 H 20 09/19/18 12:54 36.8 C 76 76 20 107/60 09/19/18 12:20 36.9 C 80 18 100/64 09/19/18 11:20 36.7 C 70 16 112/73 09/19/18 11:11 36.7 C 74 18 110/73 09/19/18 10:50 36.9 C 74 18 102/67 09/19/18 10:35 36.9 C 74 16 110/73 09/19/18 10:19 36.8 C 75 18 98/63 L BP Pulse Ox 09/20/18 07:00 107/63 98 09/20/18 03:52 99/58 L 99 09/20/18 00:35 09/19/18 22:54 104/69 99 09/19/18 19:00 104/68 99 09/19/18 16:29 100 09/19/18 16:00 100 09/19/18 15:31 100 09/19/18 15:15 100 09/19/18 15:10 100 09/19/18 14:42 100 09/19/18 14:05 107/72 98 09/19/18 13:50 99/54 L 98 09/19/18 13:35 105/48 L 100 09/19/18 12:54 09/19/18 12:20 09/19/18 11:20 09/19/18 11:11 100 09/19/18 10:50 100 09/19/18 10:35 09/19/18 10:19 100 Pain Intensity Abdomen: Pain Intensity: 4 Notes Mental Status: alert / awake / arousable and participated in evaluation Nausea / Vomiting: adequately controlled Pain: adequately controlled Airway Patency, RR, SpO2: stable & adequate BP & HR: stable & adequate Hydration State: stable & adequate
[2018-09-20] MEDS: PANTOprazole 40 MG in SYRINGE 0 ML IV SCH (08:28)
--- NOTE | 2018-09-20 09:47 | Gastroenterology Progress Note ---
Date of Service September 20, 2018 Assessment & Plan (1) Duodenal ulcer: EGD yesterday indicated a duodenal ulcer likely explaining his coffee- ground emesis. -Continue Protonix 40 mg BID on discharge -EGD in 8 weeks to ensure resolution of ulcer; if resolved at that time, can decrease to once daily PPI therapy to be continued indefinitely -Would add Carafate 1 gm four times daily before meals and at bedtime x 10 days -Avoid NSAIDs -Await pathology results to exclude H Pylori -See anemia Present on Admission?: Yes (2) Anemia: H/H improved to 9.1/26.6 today. -Continue to monitor H/H -Continue to treat Duodenal ulcer -Supportive care per primary team Present on Admission?: Yes Supervising Physician Co-Signing Physician Notes Agree with ED Daly as above Patient was discharged prior to my evaluation. Subjective Patient is a 32 yo male with a duodenal ulcer found on EGD on 09/19/2018. He reports resolution of his abdominal pain today. He denies any further episodes of coffee ground emesis. Pathology is pending from the procedure. Patient has a history of gastric ulcers, does not believe he had H Pylori in the past, but does take NSAIDs regularly. He offers no further complaints. Physical Exam Constitutional: WD/WN, vitals as above Eyes: PERRL, conjunctivae normal, anicteric sclerae Respiratory: normal respiratory effort, lungs clear to auscultation Cardiovascular: Rate/Rhythm: regular rate and regular rhythm Gastrointestinal (Abdomen): normal bowel sounds, soft, nontender, no hepatosplenomegaly Musculoskeletal: no cyanosis or clubbing, extremities motor strength 5/5 Skin: no rashes, warm and dry Psychiatric: A+Ox3, euthymic affect Results & Data Vital Signs (Past 12 Hours) Vital Signs Temp Pulse Pulse Pulse Resp BP Pulse Ox 09/20/18 07:00 36.8 C 78 20 107/63 98 09/20/18 03:52 36.6 C 85 18 99/58 L 99 09/20/18 00:35 73 09/19/18 22:54 36.7 C 69 18 104/69 99 (1) Anemia Anemia type: unspecified type Qualified Code(s): D64.9 - Anemia, unspecified
--- NOTE | 2018-09-20 10:04 | Discharge Summary ---
Date of Service September 20, 2018 Admission HPI Per Admitting Provider 32 y/o M c/o coffee ground emesis. Pt states he has been throwing up blood on and off for the last 3 weeks. He has been able to eat at times, but other times unable. He has epigastric abd pain as well. He has been nauseated. No bright red blood in stools. No black stools. Pt states that he had something similar happen about 2 years ago, prior to being incarcerated. He was seen in the ED and dx with an ulcer. He was advised about diet changes, which he did, and his sx resolved. He did not f/u with anyone for this issue and was not scoped for this. Pt states he feels a bit better, but is still nauseated and with more mild pain. Per ED physician, pt was noted to be heme +. Pt denies fever, SOB, chest pain, c/d, LE pain or swelling. Admission Exam Per Admitting Provider Constitutional: WD/WN, vitals as above Eyes: normal visual pal by confrontation and + anicteric sclerae Neck: normal visual inspection and trachea midline Respiratory: normal respiratory effort, lungs clear to auscultation Cardiovascular: Rate/Rhythm: regular rate and regular rhythm Gastrointestinal (Abdomen): Inspection/Auscultation: abdomen not distended Percussion/Palpation: + abdomen tender (epigastric) and abdomen soft Musculoskeletal: Head/Neck/Chest: normocephalic and head atraumatic negative for edema, peripheral pulses intact Skin: no rashes, warm and dry Neurologic: awake; not confused Speech / Cognition: normal speech Psychiatric: A+Ox3, euthymic affect Principal Diagnosis GI Bleed; acute blood loss anemia Discharge Exam Constitutional WD/WN, vitals as above cooperative Eyes PERRL, conjunctivae normal, anicteric sclerae ENMT external ear and nose normal, oropharynx normal Neck normal visual inspection and trachea midline Respiratory normal respiratory effort, lungs clear to auscultation Cardiovascular RRR, no murmur, no edema Gastrointestinal (Abdomen) normal bowel sounds, soft, nontender, no hepatosplenomegaly Musculoskeletal no cyanosis or clubbing, extremities motor strength 5/5 Skin no rashes, warm and dry Neurologic moves all extremities and awake Psychiatric A+Ox3, euthymic affect Discharge Data Allergies Allergy/AdvReac Type Severity Reaction Status Date / Time No Known Allergies Allergy Unverified 09/18/18 10:25 Consultations 09/18/18 11:35 ED Decision to Admit Stat 09/18/18 13:44 Consult Gastroenterology Routine Procedures Performed Operation Date: 09/19/18 10:45 Actual Procedures p EGD Biopsy Cytology - Abdirashid Read Case, DO Ordered Studies 09/18/18 10:18 CT abd pelvis IV con only Stat Hospital Course (1) Upper gastrointestinal bleed: Remi Villatoro is a 32 y/o incarcerated male with past history of report gastric ulcer who was admitted for probable upper GI bleed and acute blood loss anemia. He notes symptoms of intermittent emesis for 3 weeks coinciding timing of symptoms coincide with starting new med Diclofenac (4 weeks ago) for back pain, which was most likely etiology vs. H. pylori infection. He noted prior history of GI bleed years ago diagnosed clinically without EGD and treated with OTC meds. He noted coffee ground emesis without other signs of bleeding. Hgb on presentation was 8.5, then 09/18 7pm was 7.0. 09/19 morning's value was 6.7. He was then transfused with 2units pRBCs which improved Hgb next AM to 8.5 and on day of discharge 9.1. He had no emesis or signs of bleeding here. His abdominal pain resolved quickly. His EGD showed erosions gastric antrum biopsies; Nonbleeding duodenal bulb 15mm ulcer. Plan on discharge was the following: -Continue Protonix 40 mg BID on discharge -EGD in 8 weeks to ensure resolution of ulcer; if resolved at that time, can decrease to once daily PPI therapy to be continued indefinitely -Added Carafate 1 gm four times daily before meals and at bedtime x 10 days - stop Diclofenac - biosies; H. pylori pending. (2) Acute blood loss anemia: Total Time Total Time Spent Total Time Spent (In Minutes): 35 Total Time Includes: Examination of the Patient, Discharge Planning, Medication Reconciliation and Communication With Other Providers Discharge Plan Discharge Items [facility] Disposition: [facility] Reason For Visit: GIB Discharge Diagnosis: Gastrointestinal Bleed; Duodenal ulcer; acute blood loss anemia requiring blood transfusion. Discharge Goals: Improve disease control, Prevent disease and Therapeutic intervention Activity: Resume your previous activity Non-emergency contact: Primary Care Provider Call non-emergency contact if: you have any medication questions, your symptoms worsen, your pain is concerning for you and you have a fever Follow-up/Referrals: Shanna HERR [Primary Care Provider] - Diet: Regular Addtl Provider Instructions: You were admitted for Gastrointestinal bleed which was most likely from an erosions of gastric lining in your stomach and/or a ulcer in your Duodenum (first part of your small intestine). GI specialists performed an endoscopic procedure to visualize your stomach for bleeding. They found erosions of the gastric antrum (stomach) and biopsies were taken and were sent to pathology. There was also a non-bleeding duodenal bulb ulceration. There was no active bleeding found on endoscopy. The most likely cause of your stomach bleed was the medication Diclofenac that you were taking for pain. This medication prevents your stomach from making protective lining which protects your stomach tissue from acidic environment of your stomach. Do not continue taking Diclofenac or any other ibuprofen based Non-steroidal anti-inflammatory drugs (NSAIDs). Your stomach bleed caused blood loss causing anemia which required your to be tr ansfused with blood product to replace what you lost. You received two units of packed Red Blood Cells. Your Hemoglobin numbers are stable and improved following transfusion. Your body will replenish and make new red blood cells. The following medication changes/new medications noted are: -Protonix 40 mg BID (one pill in AM and one pill in PM) on discharge. This medication works to decrease acid production in your stomach to allow healing. -Carafate 1 gm four times daily before meals and at bedtime x 10 days. This medication works to provide a protective coating layer to stomach from acid production that occurs when you eat. You will need a repeat endoscopic study (EGD) in 8 weeks to ensure resolution of ulcer; if resolved at that time, can decrease to once daily PPI therapy to be continued indefinitely. Pending testing is for bacterial stomach infection H. pylori, which if positive can be treated with antibiotics. Please be on the look out for any signs of bleeding such as black/bloody bowel movements, bleeding per rectum, vomiting black/bright red blood. Prescriptions: New pantoprazole [Protonix] 40 mg tablet,delayed release (DR/EC) 40 mg PO BID Qty: 30 RF: 0 sucralfate [Carafate] 1 gram tablet 1 gm PO ACHS 28 Days Qty: 28 RF: 0 Discontinued diclofenac sodium 75 mg Tablet,Delayed Release (Dr/Ec) 75 mg PO BIDM RF: 0 Stand-Alone Forms: [employer]/Other Patient Handouts: Bleeding Gastrointestinal, Ulcer Gastric Duodenal Ch, Transfusion Blood Ch Discharge Orders: Discharge Order (Routine); Ordered 09/20/18 Ordered By: Jan Bermudez Admission Data Admit Date/Time: 09/18/18 12:25 Attending Provider: Bao Guzman Admit Provider: Brooke Yusuf Primary Care Provider: Shanna HERR Other Providers: Abdirashid Dennison Service: Telemetry Medical Other Interventions: Discharge Summary Assessment (RN) Last Done: 09/20/18 12:28 DC Date/Time DO NOT enter until pt leaves facility: 09/20/18 14:38 Supervising Physician Co-Signing Physician Notes Attending attestation Pt seen and examined in concert with Dr. Bermudez. In agreement with the documented findings as noted in the resident documentation with any exceptions or additions as noted here. No acute events overnight. No new episodes of n/v/emesis. UGIB s/p transfusion 2U PRBC w/ endoscopy as noted - protonix PO BID x 6 weeks, carafate qAC and qHS. Follow with GI as outpatient. Avoid NSAIDs and other similarly caustic substance. Pending Bx for H pylori. Else see resident documentation as noted. Resident Activity Tracking Resident Involvement: Resident Care Provided Care Provided: Adult Hospital Medicine
[2018-09-20] MEDS ORDERED: SUCRALFATE 1 GM/10 ML UDC PO SCH (13:00)
== END 2018-09-20 14:38 | DRG 811 ==
LOC: ED 09:42 → SUATTDRO 12:25 → 2N 12:25
DX: K44.9 Diaphragmatic hernia without obstruction or gangrene; T39.395A Adverse effect of other nonsteroidal anti-inflammatory drugs [NSAID], initial encounter; E83.42 Hypomagnesemia; K26.4 Chronic or unspecified duodenal ulcer with hemorrhage; M54.5 Low back pain; A04.8 Other specified bacterial intestinal infections; Z87.11 Personal history of peptic ulcer disease; Z79.1 Long term (current) use of non-steroidal anti-inflammatories (NSAID); Z87.891 Personal history of nicotine dependence; D62 Acute posthemorrhagic anemia